=== PATIENT | female | born 1950 | race Caucasian/White ===

== ENCOUNTER 2018-10-18 12:38 | Observation (INO) | payer OTHER ==
--- NOTE | 2018-10-18 13:19 | EDPHY ---
H & P Time Seen by Provider: 10/18/18 13:19 HPI/ROS: CHIEF COMPLAINT: Back pain HISTORY OF PRESENT ILLNESS: Patient has history of L4-5 diskectomy on the right side in 2007 for identical symptoms. She has been doing well seeing chiropractor and Dr. Diego Damico for her injections infrequently. Or last 24 hr she developed severe pain in her right side of her back radiated down her hip and her right anterior thigh. This was after she shoveled snow to make at space for her new puppy to go to the bathroom. She states the pain is severe. Worse with movement. A little bit better she tilts her hips the left. Not associated with new weakness or numbness in the foot or ankle or fever or chills. She has a little bit of chronic lateral right foot numbness ever since her surgery. REVIEW OF SYSTEMS: Eye: no change in vision ENT: no sore throat Cardiac: no chest pain or syncope Pulmonary: no cough or SOB Abdomen: no vomiting, diarrhea, abdominal pain Musculoskeletal: HPI Skin: no rash Neuro: HPI Constitutional: no fever : no urinary symptoms A comprehensive 10 point review of systems is otherwise negative aside from elements mentioned in the history of present illness. PAST MEDICAL HISTORY: Diskectomy as above, left hip replacement. Attention deficit hyperactivity disorder. 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 General Appearance: Alert and conversant, cooperative. Eyes: No scleral icterus. ENT, Mouth: Normal mucous membranes. Respiratory: Normal respiratory effort, breath sounds equal, lungs are clear to auscultation. Cardiovascular: Regular rate and rhythm. Gastrointestinal: Abdomen is soft and non tender. Neurological: Alert, face symmetric, normal motor and sensory in extremities. Sensation intact to light touch in both lower extremities, patellar reflexes 1+ bilateral, toes downgoing, extensor hallucis strength 5/5 in both. No clonus. Skin: Warm and dry, no rashes. Musculoskeletal: No midline spine tenderness. Psychiatric: Not agitated. Emergency Department course/MDM: Likely recurrent lumbar radiculopathy. Steroids discussed and consented. Oral oxycodone and oral Valium. She does not have red flags to suggest she has acute neurosurgical emergent condition at this time. Think it is unlikely she has abdominal aneurysm, cauda equina, pyelonephritis or UTI or renal colic, spinal fracture. Plan discussed, patient prefers to be discharged with treatment and no additional diagnostics. Smoking Status: Never smoked Constitutional: Initial Vital Signs Temperature (C) 36.7 C 10/18/18 12:43 Heart Rate 76 10/18/18 12:43 Respiratory Rate 16 10/18/18 12:43 Blood Pressure 149/80 H 10/18/18 12:43 O2 Sat (%) 97 10/18/18 12:43 O2 Delivery Mode Room Air Allergies/Adverse Reactions: hydromorphone [From Dilaudid] Allergy (Verified 10/18/18 12:43) levofloxacin [From Levaquin] Allergy (Verified 10/18/18 12:43) Home Medications: Medication Instructions Recorded Diazepam 5 mg PO TID PRN #13 tab 10/18/18 methylPREDNISolone [Medrol Dose 1 each PO AD #1 ea 10/18/18 Freddie] oxyCODONE/APAP 5/325 [Percocet] 1 tab PO Q4-6PRN PRN #11 tab 10/18/18 Medical Decision Making - Data Points Medications Given: Discontinued Medications Dexamethasone (Decadron) 8 mg PO EDNOW ONE Stop: 10/18/18 13:37 Last Admin: 10/18/18 13:48 Dose: 8 mg Diazepam (Valium) 2.5 mg PO EDNOW ONE Stop: 10/18/18 13:36 Last Admin: 10/18/18 13:47 Dose: 2.5 mg Oxycodone HCl (Oxycodone Ir) 10 mg PO EDNOW ONE Stop: 10/18/18 13:36 Last Admin: 10/18/18 13:47 Dose: 10 mg Departure - Departure Disposition: Home, Routine, Self-Care Clinical Impression: Lumbar radiculopathy, acute Condition: Good Instructions: Lumbar Radiculopathy (ED) Referrals: CARLTON ABREU [Other] - As per Instructions Prescriptions: Diazepam 5 mg PO TID PRN #13 tab PRN Reason: Spasms methylPREDNISolone [Medrol Dose Freddie] 1 each PO AD #1 ea oxyCODONE/APAP 5/325 [Percocet] 1 tab PO Q4-6PRN PRN #11 tab PRN Reason: Pain
[2018-10-18] MEDS ORDERED: DIAZEPAM 5 MG TAB PO ONE ×2 (13:35→14:48)
[2018-10-18] MEDS ORDERED: oxyCODONE IR 5 MG TAB PO ONE ×2 (13:35→14:32)
[2018-10-18] MEDS ORDERED: DEXAMETHASONE 4 MG TAB PO ONE (13:36)
[2018-10-18] MEDS ORDERED: ONDANSETRON DISINTEGRATING 4 MG TAB PO ONE (14:32)
[2018-10-18] MEDS ORDERED: DIAZEPAM 5 MG/ML 1 ML SYR IVP ONE ×2 (15:38→16:28)
[2018-10-18] MEDS ORDERED: ONDANSETRON 4 MG/2 ML VIAL IVP PRN (17:00)
[2018-10-18] MEDS ORDERED: ONDANSETRON DISINTEGRATING 4 MG TAB PO PRN (17:00)
--- NOTE | 2018-10-18 17:39 | PDGENHP ---
<Estela Denney - Last Filed: 10/18/18 18:13> History and Physical - Chief Complaint Lumbar pain - History of Present Illness This is a 68 y/o female presenting with acute onset of right sided lumbar pain that radiates to anterior right thigh and down her lateral calf and foot. Per pt, the presentation is the same as when it required L4-L5 diskectomy in 2007. Since her surgery in 2007, she had been doing well and staying active with riding her horses and yoga. She sees a chiropractor and Dr. Diego Damico, IR, for infrequent injections. Last night, she went outside with wet hair and was trying to shovel snow out of the way so her new puppy has an area to urinate/defecate. She was rushed because her hair was wet and it was cold outside but she didn't feel any abnormalities during this process. She woke up early this morning and had excruciating pain. It is difficult to walk as it is difficult to put weight on her right side. Pain is worse with movement and she finds when she leans to the left, it minimally alleviates the pressure/pain felt. Tingling is noted to her right toes. Able to DF/PF. RLE motor strength 3/5, LLE 5/5. Pedal pulses 2+. Denies urinary incontinence, diarrhea, constipation, dysuria. Endorses numbness to right inner thigh, however not suggestive of saddle paresthesia. She is being admitted for further diagnostic work-up and monitoring. Past Medical History 1. Anxiety 2. 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 Colon polyps 2. Left breast biopsy (1997) 3. Left hip arthroplasty (2006), Left hip hardware revision (2014) 4. Microdiscectomy (L4-L5 2007) 5. Pyloric stenosis surgery (1951) 6. Tonsillectomy (1957) Social 1. 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 Denies tobacco or illicit drug use. Rarely drinks alcohol. History Information - Allergies/Home Medication List Allergies/Adverse Reactions: hydromorphone [From Dilaudid] Allergy (Verified 10/18/18 17:04) Vomiting levofloxacin [From Levaquin] Allergy (Verified 10/18/18 17:04) dizziness, arrhythmia Home Medications: Acetaminophen [Tylenol ES 500 mg (*)] 500 - 1,000 mg PO DAILY PRN 10/18/18 [ Last Taken 10/18/18 10:30] Amphet Asp and D/Amphet [Adderall 10 MG (*)] 5 mg PO DAILY PRN 10/18/18 [Last Taken Unknown] Bio-Est Cream 1 jazz TP DAILY 10/18/18 [Last Taken Unknown] Carboxymethylcellulose Sodium [Refresh Tears] 1 drop EACHEYE BID 10/18/18 [Last Taken Unknown] Compounded Progesterone 125 mg PO HS 10/18/18 [Last Taken Unknown] Compounded Testosterone 1 tab PO DAILY 10/18/18 [Last Taken Unknown] Diclofenac Sodium [Pennsaid] 1 jazz TP DAILY PRN 10/18/18 [Last Taken Unknown] Herbals/Supplements -Info Only 1 ea PO DAILY 10/18/18 [Last Taken Unknown] Ibuprofen [Motrin (*)] 400 - 600 mg PO DAILY PRN 10/18/18 [Last Taken 10/18/18 12:00] Magnesium Oxide [Magnesium Oxide 400 mg (*)] 400 mg PO HS 10/18/18 [Last Taken Unknown] Multivitamins [Multivitamin (*)] 1 each PO DAILY 10/18/18 [Last Taken Unknown] I have personally reviewed and updated: family history, medical history, social history, surgical history Past Medical History: See HPI list - Surgical History Additional surgical history: See HPI list - Family History Positive for: cancer, CAD, hypertension - Social History Smoking Status: Never smoked Alcohol Use: None Drug Use: None Review of Systems Review of Systems: ROS: 10pt was reviewed & negative except for what was stated in HPI & below Constitutional: Reports: no symptoms EENMT: Reports: no symptoms Cardiac: Reports: no symptoms Respiratory: Reports: no symptoms Gastrointestinal: Reports: no symptoms Genitourinary: Reports: no symptoms Muscolosketal: Reports: back pain Skin: Reports: no symptoms Neurological: Reports: no symptoms Hematologic/Lymphatic: Reports: no symptoms Immunologic/Allergy: Reports: other (hydromorphone, levofloxacin) Physical Exam Physical Exam: Temp Pulse Resp BP Pulse Ox 36.7 C 75 16 123/75 H 90 L 10/18/18 17:16 10/18/18 17:16 10/18/18 17:16 10/18/18 17:16 10/18/18 17:16 Constitutional: no apparent distress, appears nourished, uncomfortable Eyes: PERRL, anicteric sclera, EOMI Ears, Nose, Mouth, Throat: moist mucous membranes, hearing normal, ears appear normal, no oral mucosal ulcers Cardiovascular: regular rate and rhythym, no murmur, rub, or gallop, No edema Peripheral Pulses: 2+: dorsalis-pedis (R) (Radial 2+), dorsalis-pedis (L) ( Radial 2+) Respiratory: no respiratory distress, no rales or rhonchi, clear to auscultation Gastrointestinal: normoactive bowel sounds, soft, non-tender abdomen, no palpable masses Genitourinary: no bladder fullness, no bladder tenderness Skin: warm, normal color, no rashes or abrasions, no fluctuance, no induration, No mottled Musculoskeletal: pain with ROM (see HPI), muscular tenderness Neurologic: AAOx3, weakness (RLE), CN II-XII Intact Psychiatric: interacting appropriately, not anxious, not encephalopathic, thought process linear Lymph, Heme, Immunologic: no cervical LAD, no supraclavicular LAD Lab Data & Imaging Review 10/18/18 17:37 10/18/18 17:37 Assessment & Plan Plan: This is a 68 y/o female presenting with acute onset of lumbar radiculopathy, similar presentation prior to her 2008 discectomy. 1. Acute lumbar radiculopathy: she received multiple pain medications while in the emergency room including Valium PO/IVP, Oxy IR PO, Morphine IVP, and Decadron PO. -Continue pain management PO/IVP, lidocaine patch. Consider continuing home ibuprofen when BMP results; cont pulse ox considering the amount of medication thus far -Neurosurgery consulted and aware. Spoke to Dr. Perdomo who will evaluate the pt tomorrow morning. In the meantime, requested MRI of lumbar/spine be performed w /o contrast. -KPad ordered -NPO at midnight tonight as a precaution for tomorrow -PT/OT to evaluate and treat -CBC/BMP pending for baseline 2. Nausea: denies. Received Zofran in emergency room. Anti-emetics PRN. 3. ADHD: on adderall Diet: Regular, NPO at midnight tonight VTE ppx: SCDs Code: Full Dispo: Admit to obs <Mauro Lindquist A - Last Filed: 10/18/18 21:39> History and Physical - History of Present Illness Review of Systems Review of Systems: Physical Exam Physical Exam: Temp Pulse Resp BP Pulse Ox 36.7 C 75 16 123/75 H 90 L 10/18/18 17:16 10/18/18 17:16 10/18/18 17:16 10/18/18 17:16 10/18/18 17:16 Constitutional: no apparent distress, appears nourished, uncomfortable Eyes: PERRL, anicteric sclera, EOMI Ears, Nose, Mouth, Throat: moist mucous membranes, hearing normal, ears appear normal, no oral mucosal ulcers Cardiovascular: regular rate and rhythym, no murmur, rub, or gallop Respiratory: no respiratory distress, no rales or rhonchi, clear to auscultation Gastrointestinal: normoactive bowel sounds, soft, non-tender abdomen, no palpable masses Skin: warm, normal color Neurologic: other (No saddle anesthesia) Lab Data & Imaging Review 10/18/18 17:37 10/18/18 17:37 WBC 7.21 10^3/uL (3.80-9.50) 10/18/18 17:37 RBC 4.12 10^6/uL (4.18-5.33) L 10/18/18 17:37 Hgb 13.7 g/dL (12.6-16.3) 10/18/18 17:37 Hct 41.2 % (38.0-47.0) 10/18/18 17:37 MCV 100.0 fL (81.5-99.8) H 10/18/18 17:37 MCH 33.3 pg (27.9-34.1) 10/18/18 17:37 MCHC 33.3 g/dL (32.4-36.7) 10/18/18 17:37 RDW 12.6 % (11.5-15.2) 10/18/18 17:37 Plt Count 229 10^3/uL (150-400) 10/18/18 17:37 MPV 9.3 fL (8.7-11.7) 10/18/18 17:37 Neut % (Auto) 90.0 % (39.3-74.2) H 10/18/18 17:37 Lymph % (Auto) 8.6 % (15.0-45.0) L 10/18/18 17:37 [place] % (Auto) 0.6 % (4.5-13.0) L 10/18/18 17:37 Eos % (Auto) 0.1 % (0.6-7.6) L 10/18/18 17:37 Baso % (Auto) 0.4 % (0.3-1.7) 10/18/18 17:37 Nucleat RBC Rel Count 0.0 % (0.0-0.2) 10/18/18 17:37 Absolute Neuts (auto) 6.49 10^3/uL (1.70-6.50) 10/18/18 17:37 Absolute Lymphs (auto) 0.62 10^3/uL (1.00-3.00) L 10/18/18 17:37 Absolute Monos (auto) 0.04 10^3/uL (0.30-0.80) L 10/18/18 17:37 Absolute Eos (auto) 0.01 10^3/uL (0.03-0.40) L 10/18/18 17:37 Absolute Basos (auto) 0.03 10^3/uL (0.02-0.10) 10/18/18 17:37 Absolute Nucleated RBC 0.00 10^3/uL (0-0.01) 10/18/18 17:37 Immature Gran % 0.3 % (0.0-1.1) 10/18/18 17:37 Immature Gran # 0.02 10^3/uL (0.00-0.10) 10/18/18 17:37 Sodium 135 mEq/L (135-145) 10/18/18 17:37 Potassium 4.2 mEq/L (3.5-5.2) 10/18/18 17:37 Chloride 104 mEq/L (97-110) 10/18/18 17:37 Carbon Dioxide 25 mEq/l (22-31) 10/18/18 17:37 Anion Gap 6 mEq/L (6-14) 10/18/18 17:37 BUN 18 mg/dL (7-23) 10/18/18 17:37 Creatinine 0.9 mg/dL (0.6-1.0) 10/18/18 17:37 Estimated GFR > 60 10/18/18 17:37 Glucose 144 mg/dL (70-100) H 10/18/18 17:37 Calcium 10.0 mg/dL (8.5-10.4) 10/18/18 17:37 Assessment & Plan Assessment: Lumbar radiculopathy, acute (Acute) Plan: Patient was seen examined at bedside. I agree with the assessment and plan as detailed above Assessment Acute lumbar radiculopathy without signs of cauda equina syndrome
[2018-10-18 17:59] LABS: PLATELET COUNT 229 10^3/uL (150-400)
[2018-10-18] MEDS ORDERED: ADDERALL 10 MG TAB PO PRN (18:07)
[2018-10-18] MEDS ORDERED: PNEUMOC 13-VAL CONJ-DIP CRM/PF 0.5 ML SYR (PREVNAR 13) IM ONE (18:10)
[2018-10-18] MEDS ORDERED: TEARS/DEXTRAN 70/HYPROMELLOSE 15 ML OPHT.BTL EACHEYE PRN (18:24)
[2018-10-18] MEDS: ACETAMINOPHEN 500 MG TAB PO SCH (18:24)
[2018-10-18] MEDS: LIDOCAINE 4%/MENTHOL 1% PATCH TD SCH (22:05)
[2018-10-18] MEDS: MAGNESIUM OXIDE 400 MG TAB PO SCH (22:07)
[2018-10-18] MEDS: oxyCODONE IR 5 MG TAB PO PRN (23:35)
[2018-10-19] MEDS: PATCH REMOVAL 1 EA PATCH TD SCH ×2 (02:15→22:23)
[2018-10-19] MEDS: ACETAMINOPHEN 500 MG TAB PO SCH ×3 (02:15→20:46)
[2018-10-19] MEDS: oxyCODONE IR 5 MG TAB PO PRN ×3 (04:44→20:46)
[2018-10-19] MEDS: MULTIVITAMINS 1 EACH TAB PO SCH (07:39)
[2018-10-19] MEDS: LIDOCAINE 4%/MENTHOL 1% PATCH TD SCH ×2 (07:42→20:52)
--- NOTE | 2018-10-19 09:35 | GCON ---
[f rep st] CONSULTATION NEUROSURGICAL CONSULTATION DATE OF CONSULTATION: 10/19/2018 CHIEF COMPLAINT: Right leg pain. HISTORY OF PRESENT ILLNESS: The patient is a 68-year-old female who has a longstanding history of lumbar degenerative joint disease requiring a previous diskectomy. She has had intermittent right leg pain predominantly in the right lateral calf and lateral foot. She was shoveling snow on Wednesday and over the course of the night into the next day, developed fairly significant right anterior thigh pain with pain in her right groin and hip. This pain became so severe that she was not able to function. She presented to the [facility] Emergency Department and she was admitted for pain control. An MRI was obtained and neurosurgical consultation was requested. She currently complains of ongoing pain in her right hip and groin with pain in her right anterior thigh. She has ongoing chronic discomfort in her right lateral calf and right lateral foot. She is not having any left leg pain or left leg weakness. She does feel that her right leg is generally weak, but she denies any incontinence or bowel and bladder problems. Her pain has been 10/10 and she has tried ice and anti-inflammatory medications with no significant improvement. PAST MEDICAL HISTORY: 1. Anxiety. 2. Migraines. 3. Lumbar degenerative joint disease. 4. TMJ syndrome. PAST SURGICAL HISTORY: Includes: 1. Colon polyps. 2. Left breast biopsy. 3. Left hip arthroplasty. 4. L4-5 microdiskectomy in 2007. 5. Pyloric stenosis surgery. 6. Tonsillectomy. MEDICATIONS: Prior to admission, are Tylenol, Adderall, Biest cream, Refresh tears, progesterone, testosterone, NSAID, herbal supplements, Motrin, magnesium oxide, multivitamin. ALLERGIES: Hydromorphone and levofloxacin. FAMILY HISTORY: Patient has no family history of spine problems. SOCIAL HISTORY: Patient is with grown children and grandchildren. She denies smoking, drinking or drug use. REVIEW OF SYSTEMS: Negative. PHYSICAL EXAM: GENERAL: Patient is a 68-year-old female, lying in bed in a moderate amount of distress. HEAD, EYES, EARS, NOSE, AND THROAT: Negative. No evidence of drainage. EXTREMITIES: [place], warm and dry. NEUROLOGICAL: Patient is awake, alert, oriented x4. Pupils equal, round, reactive to light. Extraocular motions are intact. There is no evidence of facial droop. Tongue and uvula are midline. MUSCULOSKELETAL: Spinal accessory muscles are intact. Her motor strength is 5/5 in her arms and legs. Her sensation is grossly intact to light touch in her arms and legs. Deep tendon reflexes are 1+/4 in the bilateral biceps, triceps, brachioradialis, patellar and Achilles. There is a negative María's with no clonus. DIAGNOSTIC STUDIES: An MRI of the lumbar spine from [facility] on 10/18, shows preservation of the sagittal alignment. There are mild-to- moderate multilevel degenerative changes. There is a significant amount of motion artifact on the T2 sagittal and axial sequences. There is left-sided foraminal stenosis at L4-5 and L5-S1 and a questionable far lateral L3-4 and possible far lateral L4-5 disk herniation, but this is difficult to fully visualize due to the significant motion artifact. There is no evidence of severe central canal stenosis. IMPRESSION: This is a 68-year-old female with a recent severe onset of right L3 radicular symptoms that are likely related to an acute disk herniation and possible right L3-4 far lateral disk herniation. She is neurologically stable. PLAN: All of the above discussed in detail with the patient as well as Dr. Perdomo. At this point time, her imaging is degraded by significant motion artifacts. We would like to repeat the T2 sagittal and axial sequences on the MRI. Assuming that she has a disk herniation that corresponds with her right- sided leg pain, then we would likely recommend a right-sided transforaminal epidural steroid injection at that level. She can also use muscle relaxers, anti-inflammatory medications, and would benefit from outpatient physical therapy. This patient was seen and examined with Dr. Perdomo, but will make further treatment recommendations upon completion of her MRI. Addendum: Her repeat MRI shows a small right L3/4 foraminal disc herniation that causes compression of his right L3 root. We are checking with Dr Damico to see if he can do a right L3 TFESI. If not ,then [facility] can do the WILLIAM. /[id number]/MODL MTDD
--- NOTE | 2018-10-19 10:02 | ASMTCMCOM ---
CM Note CM Note Notes: Pt admitted to hospital after waking up with extreme back pain. Pt will have imaging to check for any disk herniation. Pt is otherwise independent, PT OT to [facility]. She lives at home with her and works at [employer]. DC Plan: TBD Date Signed: 10/19/2018 10:01 AM Electronically Signed By:Cassandra Vaughan RN
[2018-10-19] MEDS: METHOCARBAMOL 750 MG TAB PO SCH ×4 (10:29→22:23)
[2018-10-19] MEDS ORDERED: BUPIVACAINE 0.5% 30 ML SDV ONE (12:52)
[2018-10-19] MEDS ORDERED: IOPAMIDOL (ISOVUE-M 300) 15 ML VIAL ONE (13:05)
[2018-10-19] MEDS ORDERED: TRIAMCINOLONE ACETONIDE 200 MG/5 ML MDV IM ONE (13:05)
--- NOTE | 2018-10-19 15:08 | HOSPPROG ---
Hospitalist Progress Note Assessment/Plan: Richa Benitez is a 68 y/o female who presented w onset of r sided lumbar pain radiating to anterior thigh and down her lateral calf a d foot. She had a steroid injection w good results. First encounter, chart reviewed. *acute right sided back pain w associated radiculopathy -s/p steroid injection-significantly helped her pain -reviewed her MRI which showed DD from L3-S1 -still having some weakness in her right hamstring area, having difficulty lifting her leg -needs to see PT and OT * Nausea -none further. * ADHD -Adderall *plan: will monitor overnight and see how she does, pain is much better w the injection, but has some weakness in the right leg. Appreciate neurosurgery seeing Richa. Subjective: Richa said the pain is better today. Objective: Vital Signs Temp Pulse Resp BP Pulse Ox 36.5 C 47 L 15 96/59 L 99 10/19/18 12:00 10/19/18 12:00 10/19/18 12:00 10/19/18 12:00 10/19/18 12:00 Laboratory Results 10/19/18 04:28 10/19/18 04:28 10/18/18 10/19/18 10/20/18 05:59 05:59 05:59 Intake Total 700 Output Total 700 Balance 0 - Physical Exam Constitutional: appears nourished, uncomfortable Eyes: PERRL Ears, Nose, Mouth, Throat: hearing normal Cardiovascular: regular rate and rhythym Respiratory: no respiratory distress Skin: warm Musculoskeletal: generalized weakness (right leg) Neurologic: AAOx3 Psychiatric: interacting appropriately ICD10 Worksheet Patient Problems: Problems Problem Status Onset Lumbar radiculopathy, acute Acute
[2018-10-19] MEDS: MAGNESIUM OXIDE 400 MG TAB PO SCH (20:47)
[2018-10-20] MEDS: ACETAMINOPHEN 500 MG TAB PO SCH ×2 (00:09→08:37)
[2018-10-20] MEDS: oxyCODONE IR 5 MG TAB PO PRN (04:57)
[2018-10-20] MEDS: METHOCARBAMOL 750 MG TAB PO SCH (06:17)
[2018-10-20] MEDS ORDERED: methylPREDNISolone 4 MG TAB PO SCH ×2 (08:30→13:00)
[2018-10-20] MEDS ORDERED: *MD ORDERING ONLY-MEDROL DOSE PAK PO SCH (08:30)
[2018-10-20] MEDS: LIDOCAINE 4%/MENTHOL 1% PATCH TD SCH (08:33)
[2018-10-20] MEDS: MULTIVITAMINS 1 EACH TAB PO SCH (08:35)
--- NOTE | 2018-10-20 09:06 | HOSPPROG ---
Hospitalist Progress Note Assessment/Plan: Richa Benitez is a 68 y/o female who presented w onset of r sided lumbar pain radiating to anterior thigh and down her lateral calf a d foot. She had a steroid injection w good results. *acute right sided back pain w associated radiculopathy -s/p steroid injection-significantly helped her pain -reviewed her MRI which showed DD from L3-S1 -now having new numbness in her right adductor area down through the calf -she has a hx of peroneal nerve problems on the r side * Nausea -none further. * ADHD -Adderall *plan: dc home, she is requesting lyrica for nerve pain. Will have her f/u w neurosurgery at . Subjective: Richa is having some numbness in her right thigh area. Objective: Vital Signs Temp Pulse Resp BP Pulse Ox 36.6 C 51 L 15 101/70 96 10/20/18 08:25 10/20/18 08:25 10/20/18 08:25 10/20/18 08:25 10/20/18 08:25 Laboratory Results 10/20/18 04:45 10/20/18 04:45 10/19/18 10/20/18 10/21/18 05:59 05:59 05:59 Intake Total 700 1050 Output Total 700 Balance 0 1050 - Physical Exam Constitutional: no apparent distress, appears nourished, uncomfortable Eyes: PERRL Ears, Nose, Mouth, Throat: hearing normal Cardiovascular: regular rate and rhythym Respiratory: no respiratory distress Skin: warm, other (able to feel my hand on her right leg throughout but says it feels numb) Neurologic: AAOx3 Psychiatric: interacting appropriately ICD10 Worksheet Patient Problems: Problems Problem Status Onset Lumbar radiculopathy, acute Acute
--- NOTE | 2018-10-20 09:37 | ASMTLACE ---
EDUARDO Length of stay for Answers: 1 day current admission Acuity / Level of Answers: No Care: Did the patient have an inpatient admission? # of Emergency department Answers: 1-2 visits in the last 6 months Social determinants Answers: Mental health diagnosis (anxiety, depression, pers onality disorders, etc.) Score: 5 Date Signed: 10/20/2018 09:36 AM Electronically Signed By:Cassandra Vaughan RN
--- NOTE | 2018-10-20 09:44 | ASMTCMCOM ---
CM Note CM Note Notes: Pt has been cleared by PT/OT for home, will dc home w/support of her . CM available for any changes. DC Plan: Independent Date Signed: 10/20/2018 09:44 AM Electronically Signed By:Cassandra Vaughan RN
--- NOTE | 2018-10-20 10:24 | GDS ---
[f rep st] DISCHARGE SUMMARY DISCHARGE DIAGNOSES: 1. Acute right-sided back pain with associated radiculopathy. 2. Nausea. 3. Attention deficit hyperactivity disorder. CONSULTATION: Lui Dorsey, physician business development assistant with neurosurgical services. HISTORY OF PRESENT ILLNESS: Briefly, the patient is a 68-year-old woman who presented with acute ons et of right-sided lumbar pain that radiated to her anterior thigh and down her lateral calf and foot. She had a similar presentation in which she had an L4-L5 diskectomy 2007. She has been doing well and riding horses and doing yoga. She was shoveling snow, had acute pain. She had 2 MRIs performed. The second one was done to get a better evaluation without contrast. This noted that she had a foc al right posterior lateral disk extrusion extending superiorly at the L3-L4 and the right L3 neural f oramen along with facet hypertrophy and ligamentum flavum hypertrophy contributing to severe right si de neural foraminal stenosis. It also notes that she has degenerative disk disease involving the lum bar spine with findings most prominent at L3-L4, L4-L5, and L5-S1. She received a steroid injection with Dr. Tompkins with good results. She will follow up with her primary care provider and a neurosu rgeon at the [facility] [place] for further evaluation. HOSPITAL COURSE: For: 1. Back pain with right-sided radiculopathy: She is having a little bit more numbness on the right inner thigh area. She will be placed on a Medrol Dosepak to see if this resolves. If not, she will follow up with the neurosurgeon at [facility]. If she is incontinent of urine or stool, to return to the ER immediately. 2. Nausea: None further. 3. Attention deficit hyperactivity disorder: Adderall. DISCHARGE CONDITION: Stable. PHYSICAL EXAMINATION: VITAL SIGNS: Blood pressure is 101/70. Heart rate of 51. Respiratory rate o f 15. O2 sats, room air, 96%. Temperature is 36.6 Celsius. MEDICATIONS AT DISCHARGE: Please see the EMR. DISCHARGE INSTRUCTIONS: 1. To do the Medrol Dosepak as instructed. 2. To follow up with Neurosurgery. 3. To avoid driving and drinking while on pain medications as well as Lyrica. 4. To return to the ER if she is incontinent of urine, stool. Copy requested to: Dr. Cuong Perdomo /[id number]/[facility] [place]
[2018-10-20 12:07] VITALS: BP 109/73
[2018-10-21] MEDS ORDERED: methylPREDNISolone 4 MG TAB PO SCH ×2 (07:30→21:00)
[2018-10-22] MEDS ORDERED: methylPREDNISolone 4 MG TAB PO SCH (07:30)
[2018-10-23] MEDS ORDERED: methylPREDNISolone 4 MG TAB PO SCH (07:30)
[2018-10-24] MEDS ORDERED: methylPREDNISolone 4 MG TAB PO SCH (07:30)
[2018-10-25] MEDS ORDERED: methylPREDNISolone 4 MG TAB PO SCH (07:30)
== END 2018-10-20 12:52 | disposition home or self-care (01) ==
LOC: F3N 17:10
PROVIDERS: ADMIT Family Medicine; ATTEND Family Medicine
DX: M51.16 Intervertebral disc disorders with radiculopathy, lumbar region (principal); R11.0 Nausea; F90.9 Attention-deficit hyperactivity disorder, unspecified type; M51.36 Other intervertebral disc degeneration, lumbar region; M51.37 Other intervertebral disc degeneration, lumbosacral region; F41.9 Anxiety disorder, unspecified; G43.909 Migraine, unspecified, not intractable, without status migrainosus; M26.609 Unspecified temporomandibular joint disorder, unspecified side; Z86.010 Personal history of colon polyps; Z82.49 Family history of ischemic heart disease and other diseases of the circulatory system; Z96.642 Presence of left artificial hip joint; Z23 Encounter for immunization
CPT/HCPCS: 64483; 72148; 90471; 96374; 96375; 96376; 97116; 97161; 97165; 97535; 99285; G0378; G0009; J2270; J2405; J3301; J3360; Q9967